=== PATIENT | male | born 1960 | race Caucasian/White ===

== ENCOUNTER 2022-09-30 15:57 | Outpatient (AMB) | payer OTHER, SELFPAY ==
--- NOTE | 2022-09-30 16:20 | AM.OFFWIN_ITS ---
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 Patient is unable to hear from both ears. PFSH Social History Patient Tobacco Use Status: Never used Tobacco Physical Exam Vital Signs: Last Vital Signs Temp 97.9 F 09/30/22 16:24 Pulse 83 09/30/22 16:24 BP 120/80 09/30/22 16:24 Pulse Ox 98 09/30/22 16:24 Oxygen Delivery Method Room Air 09/30/22 16:24 HEENT Other: Right and left ear canal: Wax present. Tympanic membrane not visualized P Office Procedures Cerumen Removal From which ear canal was the cerumen removed: bilateral Removal: irrigation and otoscope w/curette 19270-Bhm Wax Removal by Spoon/Curette Assessment & Plan Assessment & Plan (1) Cerumen impaction: Code(s): H61.20 - Impacted cerumen, unspecified ear Plan Patient tolerated the procedure well Orders: Orders AMB Cerumen Removal 09/30/22 H61.23 - Impacted cerumen, bilateral Coding Level of Care Code Est Pt Level 3 (68350) Diagnoses Cerumen impaction H61.20 CPT Codes Office Procedure - CPT: 22439-Bzp Wax Removal by Spoon/Curette ([id number])
[2022-09-30 16:24] VITALS: BP 120/80; PULSE 83; TEMP 36.6; O2SAT 98
== END 2022-09-30 17:05 | disposition home or self-care (01) ==
PROVIDERS: Visit Provider Internal Medicine
DX: H61.23 Impacted cerumen, bilateral (principal)
CPT/HCPCS: 69210; 99213